=== PATIENT | male | born 1940 | race Caucasian/White ===

== ENCOUNTER 2022-09-26 08:42 | Inpatient (IN) | payer MEDICARE ==
[~2022-09-26] VITALS: Ht 167.6 cm; Wt 86.2 kg
--- NOTE | 2022-09-26 08:58 | NUR ---
[facility] [place], sent by PMD for noted generalized weakness. Placed in gown.
--- NOTE | 2022-09-26 09:01 | NUR ---
IV LINE LEFT AC 20 G ,
--- NOTE | 2022-09-26 09:01 | NUR ---
BLOOD SAMPLE OBTAINED SENT TO LAB
[2022-09-26 09:37] LABS: BASOPHILS # (AUTO) 0.1 K/uL (0.0-0.2); BASOPHILS % (AUTO) 0.9 % (0.0-2.0); EOSINOPHILS % (AUTO) 7.8 % (0.0-6.0); HEMATOCRIT 32 % (39-51); HEMOGLOBIN 10.3 g/dL (13.5-17.5); LYMPHOCYTES # (AUTO) 2.3 K/uL (0.8-4.8); LYMPHOCYTES % (AUTO) 32.5 % (20.0-44.0); MEAN CORPUSCULAR HGB CONC 32 g/dl (31.0-36.0); MEAN CORPUSCULAR VOLUME 92 fL (80-96); MONOCYTES # (AUTO) 0.7 K/uL (0.1-1.30); MONOCYTES % (AUTO) 10.4 % (2.0-12.0); NEUTROPHILS # (AUTO) 3.5 K/uL (1.8-8.9); NEUTROPHILS % (AUTO) 48.4 % (43.0-81.0); PLATELET COUNT (AUTO) 98 K/uL (150-450); RED BLOOD CELL COUNT(AUTO) 3.46 MIL/uL (4.5-6.0); WHITE BLOOD COUNT (AUTO) 7.2 K/uL (4.3-11.0)
[2022-09-26] MEDS ORDERED: MAG HYDROX/AL HYDROX/SIMETH 30 ML UDC PO PRN ×2 (10:00→15:00)
[2022-09-26] MEDS ORDERED: MAGNESIUM HYDROXIDE 30 ML UDC PO PRN ×2 (10:00→15:00)
[2022-09-26] MEDS ORDERED: IV NS 0.9% 1,000 ML IV PRN (10:00)
[2022-09-26] MEDS ORDERED: ACETAMINOPHEN 325 MG TABLET PO PRN ×2 (10:00→15:00)
[2022-09-26] MEDS ORDERED: ONDANSETRON HCL/PF 4 MG/2 ML VIAL IVP PRN ×2 (10:00→15:00)
[2022-09-26] MEDS ORDERED: Z GUARD REMEDY 4 OZ OINT TP PRN ×2 (10:00→15:00)
[2022-09-26 10:01] LABS: ALANINE AMINOTRANSFERASE 27 U/L (12-78); ALKALINE PHOSPHATASE 68 U/L (46-116); ASPARTATE AMINOTRANSFERASE 19 U/L (15-37); BILIRUBIN,DIRECT 0.1 mg/dL (0.0-0.2); BILIRUBIN,TOTAL 0.2 mg/dL (0.2-1.0); CALCIUM, SERUM 8.3 mg/dL (8.5-10.1); CARBON DIOXIDE 24 mmol/L (21-32); CHLORIDE 114 mmol/L (98-107); CREATININE 1.7 mg/dL (0.6-1.3); GLUCOSE 106 mg/dL (74-106); POTASSIUM 4.1 mmol/L (3.5-5.1); SODIUM SERUM 146 mmol/L (136-145); TOTAL PROTEIN, SERUM 6.5 g/dL (6.4-8.2); UREA NITROGEN, BLOOD 38 mg/dL (7-18)
--- NOTE | 2022-09-26 11:56 | NUR ---
GOT BED 104 ADMITTING INFORMED.
[2022-09-26] MEDS ORDERED: FINA5TAB11 PO (11:59)
[2022-09-26] MEDS ORDERED: LOSA50TA39 PO (11:59)
[2022-09-26] MEDS ORDERED: FURO-145 PO (11:59)
[2022-09-26] MEDS ORDERED: BISA10SU11 RC (11:59)
[2022-09-26] MEDS ORDERED: ATOR40TA PO (11:59)
[2022-09-26] MEDS ORDERED: APIX2.5T PO (11:59)
[2022-09-26] MEDS ORDERED: DIVA500T54 PO (11:59)
[2022-09-26] MEDS ORDERED: MIRT45TA83 PO (11:59)
[2022-09-26] MEDS ORDERED: MAGN400O6 PO (11:59)
[2022-09-26] MEDS ORDERED: NA P133E RC (11:59)
[2022-09-26] MEDS ORDERED: ASPI-1169 PO (11:59)
[2022-09-26] MEDS ORDERED: METO25TA20 PO (11:59)
--- NOTE | 2022-09-26 12:10 | NUR ---
REPORT GIVEN TO JOYCE SUMMERS
--- NOTE | 2022-09-26 12:35 | NUR ---
ADMITTING MS RN NOTES: ADMITTED A 82 YO MALE PT FROM EMERGENCY ROOM.REPORT GIVEN BY KRISTOPHER RODRÍGUEZ. RECEIVED PT VIA GURNEY PATIENT IS AMBULATORY. NO SOB OR CARDIAC DISTRESS NOTED. ON ROOM AIR AND TOLERATING WELL. ON ROOM AIR AND TOLERATING WELL. LUNGS CLEAR. ABDOMEN SOFT AND BOWEL SOUND PRESENT. BODY ASSESSMENT DONE AND UPON ASSESSMENT SKIN IS INTACT.IV ACCESS ON LAC GAUGE 20 PATENT, INTACT AND INFUSING NS 1L @ 75ML/HR. BELONGINGS OF THE PT IS CLOTHES THAT HE'S WEARING, BOXER SHORTS, JOGGING PANTS AND SHOES. SAFETY MEASURES INITIATED: BED LOCKED AND IN LOWEST POSITION, SIDERAILS UP X 2 CALL LIGHT IN EAY REACH AND BED SIDE TABLE. ORIENTED PT TO THE UNIT AND STAFFS. WILL MONITOR PT ACCORDINGLY.
--- NOTE | 2022-09-26 12:36 | NUR ---
RN NOTES: PATIENT NOTED WITH BLE AND BILATERAL FEET +2 EDEMA. NOTED WITH SKIN DISCOLORATION ON LEFT HAND UNLESS OTHERWISE SKIN IS INTACT.
--- NOTE | 2022-09-26 12:40 | NUR ---
RN NOTES: URINE COLLECTED SPOKE TO GLEN FOR SPECIMEN BUNDLE COLLECTOR.
[2022-09-26 13:13] LABS: BILIRUBIN,URINE NEGATIVE (NEGATIVE); COLOR,URINE YELLOW (YELLOW); LEUKOCYTE ESTERASE ,URINE NEGATIVE (NEGATIVE); NITRITE, URINE NEGATIVE (NEGATIVE); PROTEIN,URINE NEGATIVE (NEGATIVE); UGLUCOSE NEGATIVE (NEGATIVE); UROBILINOGEN,URINE 0.2 EU/dL (0.2)
[2022-09-26] MEDS ORDERED: NA PHOS,M-B/NA PHOS,DI-BA 1 EA ENEMA RC PRN (15:00)
[2022-09-26] MEDS: MIRTAZAPINE 45 MG TABLET PO SCH (17:20)
--- NOTE | 2022-09-26 18:44 | NUR ---
ELECTRONICS WORKER CLOSING NOTES: PATIENT IN BED AWAKE,ALERT AND ORIENTED X 4 AND ABLE TO MAKE NEEDS KNOWN. NO SOB OR CARDIAC DISTRESS NOTED, PT STILL COMPLAIN BODY WEAKNESS BUT IMPROVING. DENIES PAIN AT THIS TIME. IV ACCESS ON LAC GAUGE 20 PATENT, INTACT AND INFUSING NS 1L @75ML/HR. SAFETY MEASURES MAINTAINED: BED LOCKED AND IN LOWEST POSITION, SIDE RAILS UP X 2. CALL LIGHT AND BED SIDE TABLE IN EASY REACH. WILL ENDORSE TO PLANNING ASSISTANT NURSE FOR CONTINUITY OF CARE.
--- NOTE | 2022-09-26 19:05 | NUR ---
SENIOR TELECOMMUNICATIONS CONSULTANT opening note Received pt resting in bed, awake, A&Ox4, able to make needs known, breathing even and unlabored, on RA, LAC 20G flushing well, NS 75cc/hr infusing well, pt independent with bed mobility, call light with in reach, bed at lowest position, will continue to monitor Addendum: 09/27/22 at 0620 by FRANCI MILLER LVN opening note time is 2076
--- NOTE | 2022-09-26 19:30 | NUR ---
MS RN OPENING NOTE RECEIVED PATIENT FROM AM NURSE; PATIENT AWAKE IN BED, A/O X 4, ABLE TO MAKE NEEDS KNOWN; STABLE ON ROOM AIR, BREATHING EVENLY AND NO S/S OF DISTRESS NOTED; WITH IV ACCESS AT LAC G#20 INFUSING WITH NORMAL SALINE AT 75 ML/HR; SAFETY MEASURES IMPLEMENTED, BED LOCKED IN LOW POSITION, SIDE RAILS UP X 2, CALL LIGHT AND TABLE WITHIN REACH; ENCOURAGED VERBALIZATION OF NEEDS; WILL CONTINUE TO MONITOR THROUGHOUT SHIFT
[2022-09-26 20:00] VITALS: BP 135/69
[2022-09-26] MEDS: APIXABAN 2.5 MG TABLET PO SCH (20:34)
--- NOTE | 2022-09-26 23:40 | NUR ---
MS FOREIGN SERVICE TEACHER OF CARE PATIENT SLEEPING IN BED, STABLE ON ROOM AIR AND NO S/S OF DISTRESS NOTED. NO COMPLAINTS OF PAIN AND DISCOMFORT AT THIS TIME. ENDORSED TO ANITA FOR ROSSY.
[2022-09-27 04:00] VITALS: BP 141/63
[2022-09-27 06:20] LABS: CALCIUM, SERUM 8.2 mg/dL (8.5-10.1); CREATININE 1.3 mg/dL (0.6-1.3); MAGNESIUM 2.6 mg/dL (1.8-2.4); PHOSPHORUS 3.3 mg/dL (2.5-4.9)
--- NOTE | 2022-09-27 06:20 | NUR ---
CALTRANS EQUIPMENT OPERATOR closing note Pt resting in bed, asleep, easy to arouse, A&Ox4, verbal, breathing even and unlabored, on RA, denied any pain this shift, LFA 20G flushing well, all due meds given per md orders, tolerated well, all basic needs met and anticipated, will cont to monitor
--- NOTE | 2022-09-27 07:50 | NUR ---
MS RN OPENING NOTE FABIO DAY SHIFT) RECEIVED PATIENT FROM NIGHT NURSE; PATIENT AWAKE IN BED, A/O X 4, ABLE TO MAKE NEEDS KNOWN; STABLE ON ROOM AIR, BREATHING EVENLY AND NO S/S OF DISTRESS NOTED; WITH IV ACCESS AT LAC G#20 INFUSING WITH NORMAL SALINE AT 75 ML/HR; SAFETY MEASURES IMPLEMENTED, BED LOCKED IN LOW POSITION, SIDE RAILS UP X 2, CALL LIGHT AND TABLE WITHIN REACH; ENCOURAGED VERBALIZATION OF NEEDS; WILL CONTINUE TO MONITOR AND CARE FOR PATIENT THROUGHOUT SHIFT PER MD'S POC.
[2022-09-27 07:52] LABS: BASOPHILS # (AUTO) 0.1 K/uL (0.0-0.2); BASOPHILS % (AUTO) 0.8 % (0.0-2.0); EOSINOPHILS % (AUTO) 7.2 % (0.0-6.0); HEMATOCRIT 34 % (39-51); HEMOGLOBIN 10.4 g/dL (13.5-17.5); LYMPHOCYTES # (AUTO) 2.2 K/uL (0.8-4.8); LYMPHOCYTES % (AUTO) 28.6 % (20.0-44.0); MEAN CORPUSCULAR HGB CONC 31 g/dl (31.0-36.0); MEAN CORPUSCULAR VOLUME 96 fL (80-96); MONOCYTES % (AUTO) 12.3 % (2.0-12.0); NEUTROPHILS % (AUTO) 51.1 % (43.0-81.0); RED BLOOD CELL COUNT(AUTO) 3.51 MIL/uL (4.5-6.0); WHITE BLOOD COUNT (AUTO) 7.8 K/uL (4.3-11.0)
[2022-09-27 09:11] LABS: PLATELET COUNT (AUTO) 71 K/uL (150-450)
[2022-09-27 09:18] LABS: EOSINOPHILS % (MANUAL) 5 % (0-4); LYMPHOCYTES % (MANUAL) 27 % (16-48); MONOCYTES % (MANUAL) 13 % (0-11.0); NEUTROPHILS % (MANUAL) 55 (42-76)
[2022-09-27] MEDS: DIVALPROEX SODIUM 500 MG TABLET.DR PO SCH (09:33)
[2022-09-27] MEDS: ASPIRIN 81 MG TAB.CHEW PO SCH (09:33)
[2022-09-27] MEDS: FINASTERIDE (5 MG) 5 MG TABLET PO SCH (09:33)
[2022-09-27] MEDS: METOPROLOL TARTRATE 25 MG TABLET PO SCH (09:34)
[2022-09-27] MEDS: APIXABAN 2.5 MG TABLET PO SCH ×2 (09:36→22:18)
[2022-09-27 12:00] VITALS: BP 122/74
[2022-09-27 16:00] VITALS: BP 114/65
[2022-09-27] MEDS: IV NS 0.9% 1,000 ML IV PRN (16:29)
[2022-09-27] MEDS: MIRTAZAPINE 45 MG TABLET PO SCH (18:02)
--- NOTE | 2022-09-27 18:51 | NUR ---
PHOTOENGRAVING SKETCH MAKER CLOSING NOTE (FABIO DAY SHIFT) PATIENT IN BED AWAKE,ALERT AND ORIENTED X 4 AND ABLE TO MAKE NEEDS KNOWN. NO SOB OR CARDIAC DISTRESS NOTED. DENIES PAIN AT THIS TIME. IV ACCESS ON LAC GAUGE 20 PATENT, INTACT AND INFUSING NS @75ML/HR. SAFETY MEASURES MAINTAINED: BED LOCKED AND IN LOWEST POSITION, SIDE RAILS UP X 2. CALL LIGHT AND BED SIDE TABLE IN EASY REACH. WILL ENDORSE TO SIGN PAINTER NURSE FOR CONTINUITY OF CARE.
--- NOTE | 2022-09-27 19:00 | NUR ---
UROLOGY TEACHER opening note Received pt resting in bed, awake, A&Ox4, able to make needs known, breathing even and unlabored, on RA, LAC 20G flushing well, NS 75cc/hr infusing well, pt independent with bed mobility, call light with in reach, bed at lowest position, will continue to monitor
[2022-09-27 20:00] VITALS: BP 124/66
[2022-09-28 04:00] VITALS: BP 137/83
[2022-09-28] MEDS: IV NS 0.9% 1,000 ML IV PRN (06:18)
--- NOTE | 2022-09-28 06:35 | NUR ---
FIELD SERVICER closing note Pt resting in bed, asleep, easy to arouse, A&Ox4, verbal, breathing even and unlabored, on RA, denied any pain this shift, LFA 20G flushing well, all due meds given per md orders, tolerated well, all basic needs met and anticipated, all safety precautions in place, will cont to monitor
--- NOTE | 2022-09-28 07:10 | NUR ---
SENIOR SALES MANAGER OPENING NOTES Received pt awake in bed AOX4. No complaints of pain or discomfort at this time. Pt is on RA and tolerating it well. IV access on LAC 20G running IVF NS @ 75cc/hr. HOB elevated to opts comfort. Siderails up at al times x4. Call light within reach. Will continue to monitor.
[2022-09-28 08:00] VITALS: BP 144/81
[2022-09-28] MEDS: DIVALPROEX SODIUM 500 MG TABLET.DR PO SCH (08:48)
[2022-09-28] MEDS: ASPIRIN 81 MG TAB.CHEW PO SCH (08:49)
[2022-09-28] MEDS: METOPROLOL TARTRATE 25 MG TABLET PO SCH (08:49)
[2022-09-28] MEDS: FINASTERIDE (5 MG) 5 MG TABLET PO SCH (08:49)
[2022-09-28] MEDS: APIXABAN 2.5 MG TABLET PO SCH ×2 (08:49→21:08)
[2022-09-28 16:00] VITALS: BP 115/62
[2022-09-28] MEDS: MIRTAZAPINE 45 MG TABLET PO SCH (17:00)
--- NOTE | 2022-09-28 18:42 | NUR ---
JUNIOR MARKETING ASSOCIATE CLOSING NOTES All due meds and tx given as ordered. Pt tolerated everything well. All needs attended to. Call light within reach. Will endorse to oncoming nurse.
--- NOTE | 2022-09-28 19:30 | NUR ---
noc rn opening received patient in bed a/ox4, no s/s of apparent distress in room air. denies pain nor discomfort. IV access on LAC #20g saline lock. safety in place-- bed in lowest, locked position, call light within reach, side rails up X2. will continue to monitor patient.
[2022-09-28 20:00] VITALS: BP 134/62
[2022-09-29 05:00] VITALS: BP 126/70
--- NOTE | 2022-09-29 06:12 | NUR ---
noc rn closing note 104 Patient in bed with eyes closed, easy to arouse. no s/s of apparent distress in room air. denies pain nor discomfort at this time. left ac #20g on saline lock. safety kept in place throughout shift. all needs attended. all scheduled medication administered. patient for d/c this am. will endorse to morning shift rn for continuity of care.
--- NOTE | 2022-09-29 07:05 | NUR ---
MS RN OPENING NOTE: RECEIVED PT IN BED. SLEEPING. EASILY AROUSABLE TO VERBAL AND TACTILE STIMULI. NO RESP DISTRESS NOTED. CALL LIGHT WITHIN REACH. BED IN LOW AND LOCK POSITION.
[2022-09-29] MEDS: DIVALPROEX SODIUM 500 MG TABLET.DR PO SCH (08:29)
[2022-09-29] MEDS: FINASTERIDE (5 MG) 5 MG TABLET PO SCH (08:29)
[2022-09-29] MEDS: ASPIRIN 81 MG TAB.CHEW PO SCH (08:29)
[2022-09-29 08:30] VITALS: BP 118/66
[2022-09-29] MEDS: APIXABAN 2.5 MG TABLET PO SCH (08:30)
[2022-09-29] MEDS: METOPROLOL TARTRATE 25 MG TABLET PO SCH (08:30)
--- NOTE | 2022-09-29 11:22 | NUR ---
MS RN NOTE: DR. WHALEY WITH ORDER TO D/C BACK TO [facility] [phone]. CALLED AND REPORT GIVEN TO SARTHAK SUMMERS AT THE FACILITY.
--- NOTE | 2022-09-29 13:15 | NUR ---
DISCHARGE NOTE: RECEIVED ORDER FOR D/C BACK [facility]. PT IS AAOX4. ABLE TO MAKE NEEDS KNOWN. IN STABLE CONDITION. ON RA, NO SOB NOTED. D/C INSTRUCTION GIVEN TO PT. VERBALIZE UNDERSTANDING. ALL BELONGINGS ACCOUNTED FOR AND SIGNED. IV ACCESS REMOVED.CATHETER INTACT. PRESSURE DRESSING APPLIED. ID BAND REMOVED. EXIT CARE FOLDER GIVEN. PT PICKED BY [facility]. PT LEFT IN STABLE CONDITION.
== END 2022-09-29 13:15 | DRG 682 ==
LOC: ER 09:18 → MEDSG1 12:27
PROVIDERS: ADMIT Internal Medicine
DX: N17.0 Acute kidney failure with tubular necrosis (principal); E43 Unspecified severe protein-calorie malnutrition; G93.41 Metabolic encephalopathy; E87.0 Hyperosmolality and hypernatremia; E87.20 Acidosis, unspecified; E86.0 Dehydration; E86.1 Hypovolemia; N18.1 Chronic kidney disease, stage 1; I12.9 Hypertensive chronic kidney disease with stage 1 through stage 4 chronic kidney disease, or unspecified chronic kidney disease; D63.8 Anemia in other chronic diseases classified elsewhere; I48.91 Unspecified atrial fibrillation; N40.0 Benign prostatic hyperplasia without lower urinary tract symptoms; E88.09 Other disorders of plasma-protein metabolism, not elsewhere classified; Z68.30 Body mass index [BMI] 30.0-30.9, adult; R53.1 Weakness; R29.6 Repeated falls
CPT/HCPCS: 36415; 71045-TC; 80048-TC; 80076-TC; 83605-TC; 83735-TC; 84100-TC; 84484-TC; 85025-TC; 85730-TC; 87040-TC; 87086-TC; 97116-TC; 97530-TC; G0378; J7030; J7060

== ENCOUNTER 2024-07-14 13:56 | Inpatient (IN) | payer MEDICARE, BC, OTHER ==
[~2024-07-14] VITALS: Ht 167.6 cm; Wt 88.9 kg
[~2024-07-14 13:56] MED LIST: APIX2.5T PO; ASPI-1169 PO; ATOR40TA PO; BISA10SU11 RC; DIVA500T54 PO; FINA5TAB11 PO; FURO-145 PO; LOSA50TA39 PO; MAGN400O6 PO; METO25TA20 PO; MIRT45TA83 PO; NA P133E RC
[2024-07-14 14:45] LABS: INR 1.08 (0.91-1.10); PARTIAL THROMBOPLASTIN TIME 31.3 SEC (24.3-34.3); PROTHROMBIN TIME 11.4 SECS (9.2-11.1)
[2024-07-14 14:46] LABS: CALCIUM, SERUM 8.6 mg/dL (8.5-10.1); CARBON DIOXIDE 19 mmol/L (21-32); CHLORIDE 102 mmol/L (98-107); CREATININE 1.8 mg/dL (0.6-1.3); GLUCOSE 126 mg/dL (74-106); POTASSIUM 5.6 mmol/L (3.5-5.1); SODIUM SERUM 134 mmol/L (136-145); UREA NITROGEN, BLOOD 34 mg/dL (7-18)
[2024-07-14 14:58] LABS: MAGNESIUM 2.3 mg/dL (1.8-2.4)
[2024-07-14 14:59] LABS: CREATINE KINASE, TOTAL 72 U/L (39-308)
[2024-07-14 15:00] LABS: ALANINE AMINOTRANSFERASE 36 U/L (12-78); ALBUMIN 3.3 g/dL (3.4-5.0); ALKALINE PHOSPHATASE 106 U/L (46-116); ASPARTATE AMINOTRANSFERASE 30 U/L (15-37); BILIRUBIN,DIRECT 0.2 mg/dL (0.0-0.2); BILIRUBIN,TOTAL 0.8 mg/dL (0.2-1.0); TOTAL PROTEIN, SERUM 6.8 g/dL (6.4-8.2)
[2024-07-14 15:05] LABS: ALCOHOL, BLOOD < 10 mg/dL (0-10)
[2024-07-14 15:07] LABS: BASOPHILS # (AUTO) 0.1 K/uL (0.0-0.2); BASOPHILS % (AUTO) 0.6 % (0.0-2.0); EOSINOPHILS # (AUTO) 0.1 K/uL (0.0-0.7); EOSINOPHILS % (AUTO) 1.6 % (0.0-6.0); HEMATOCRIT 34 % (39-51); HEMOGLOBIN 11.6 g/dL (13.5-17.5); LYMPHOCYTES # (AUTO) 1.2 K/uL (0.8-4.8); MEAN CORPUSCULAR HEMOGLOBIN 29 PG (26.0-33.0); MEAN CORPUSCULAR HGB CONC 34 g/dl (31.0-36.0); MEAN CORPUSCULAR VOLUME 85 fL (80-96); MONOCYTES # (AUTO) 1.3 K/uL (0.1-1.30); MONOCYTES % (AUTO) 14.7 % (2.0-12.0); NEUTROPHILS # (AUTO) 6.1 K/uL (1.8-8.9); NEUTROPHILS % (AUTO) 69.1 % (43.0-81.0); RED BLOOD CELL COUNT(AUTO) 4.05 MIL/uL (4.5-6.0); RED CELL DISTRIBUTION WIDTH 16.1 % (11.5-15.0); WHITE BLOOD COUNT (AUTO) 8.8 K/uL (4.3-11.0)
[2024-07-14 15:17] LABS: APPEARANCE,URINE CLEAR (CLEAR); BILIRUBIN,URINE NEGATIVE (NEGATIVE); BLOOD, URINE NEGATIVE Ery/uL (NEGATIVE); COLOR,URINE YELLOW (YELLOW); KETONES,URINE NEGATIVE (NEGATIVE); LEUKOCYTE ESTERASE ,URINE NEGATIVE (NEGATIVE); NITRITE, URINE NEGATIVE (NEGATIVE); PROTEIN,URINE TRACE mg/dl (NEGATIVE); UGLUCOSE NEGATIVE (NEGATIVE)
[2024-07-14] MEDS ORDERED: FUROSEMIDE 40 MG/4 ML VIAL ONE (15:19)
[2024-07-14] MEDS: FUROSEMIDE 40 MG/4 ML VIAL IV ONE (15:25)
[2024-07-14] MEDS ORDERED: MIRT7.5T10 PO (16:18)
[2024-07-14] MEDS ORDERED: ACET-2030 PO ×2 (16:18)
[2024-07-14] MEDS ORDERED: LIDO1ADH82 TP (16:18)
[2024-07-14] MEDS ORDERED: DIVA250T47 PO (16:18)
[2024-07-14] MEDS ORDERED: BACL10TA PO (16:18)
[2024-07-14 16:37] LABS: ADD URINE CULTURE NO; BACTERIA,URINE None seen /HPF (None Seen); MUCUS,URINE Few /LPF (None Seen); RBC,URINE 0-2 /HPF (0-2); SQUAMOUS EPITHELIAL CELL,UR 0-2 /HPF (None Seen); WBC,URINE 0-2 /HPF (0-3)
[2024-07-14 18:00] VITALS: BP 118/88; TEMP 97.7; O2SAT 95
[2024-07-14 18:22] LABS: PLATELET COUNT (AUTO) 186 K/uL (150-450)
[2024-07-14] MEDS ORDERED: MAG HYDROX/AL HYDROX/SIMETH 30 ML UDC PO PRN (18:30)
[2024-07-14] MEDS ORDERED: BISACODYL SUPP (10 MG) 10 MG/SUPP.RECT SUPP.RECT RC PRN (18:30)
[2024-07-14] MEDS ORDERED: BACLOFEN (10 MG) 10 MG TABLET PO PRN (18:30)
[2024-07-14] MEDS ORDERED: ONDANSETRON HCL/PF 4 MG/2 ML VIAL IVP PRN (18:30)
[2024-07-14] MEDS ORDERED: MAGNESIUM HYDROXIDE 30 ML UDC PO PRN (18:30)
[2024-07-14] MEDS: LIDOCAINE 5% (PATCH) 1 EA PATCH TP SCH (18:30)
[2024-07-14] MEDS ORDERED: ACETAMINOPHEN 325 MG TABLET PO PRN (18:30)
[2024-07-14 20:00] VITALS: BP 165/96; TEMP 97.9; O2SAT 95
[2024-07-14] MEDS: MIRTAZAPINE 15 MG TABLET PO SCH (21:10)
[2024-07-14] MEDS: APIXABAN 2.5 MG TABLET PO SCH (21:11)
[2024-07-14] MEDS: DIVALPROEX SODIUM 250 MG TABLET.DR PO SCH (21:11)
[2024-07-14] MEDS: ATORVASTATIN 40 MG TABLET PO SCH (21:11)
[2024-07-15] VITALS (7 sets, daily range): BP systolic 118–138; BP diastolic 51–76; TEMP 96.4–98.4; O2SAT 94–100
[2024-07-15 07:35] LABS: CALCIUM, SERUM 8.7 mg/dL (8.5-10.1); CREATININE 1.5 mg/dL (0.6-1.3); MAGNESIUM 2.4 mg/dL (1.8-2.4); PHOSPHORUS 5.2 mg/dL (2.5-4.9); POTASSIUM 5.1 mmol/L (3.5-5.1)
[2024-07-15 08:03] LABS: BASOPHILS # (AUTO) 0.1 K/uL (0.0-0.2); BASOPHILS % (AUTO) 0.6 % (0.0-2.0); EOSINOPHILS # (AUTO) 0.1 K/uL (0.0-0.7); EOSINOPHILS % (AUTO) 1.1 % (0.0-6.0); HEMATOCRIT 36 % (39-51); LYMPHOCYTES % (AUTO) 10.5 % (20.0-44.0); MEAN CORPUSCULAR HEMOGLOBIN 28 PG (26.0-33.0); MEAN CORPUSCULAR HGB CONC 33 g/dl (31.0-36.0); MEAN CORPUSCULAR VOLUME 85 fL (80-96); MONOCYTES # (AUTO) 1.2 K/uL (0.1-1.30); MONOCYTES % (AUTO) 12.7 % (2.0-12.0); NEUTROPHILS # (AUTO) 6.9 K/uL (1.8-8.9); NEUTROPHILS % (AUTO) 75.1 % (43.0-81.0); RED BLOOD CELL COUNT(AUTO) 4.27 MIL/uL (4.5-6.0); RED CELL DISTRIBUTION WIDTH 16.3 % (11.5-15.0); WHITE BLOOD COUNT (AUTO) 9.1 K/uL (4.3-11.0)
[2024-07-15] MEDS ORDERED: METOPROLOL TARTRATE 25 MG TABLET PO SCH (09:00)
[2024-07-15] MEDS ORDERED: FUROSEMIDE 40 MG/4 ML VIAL IV SCH (09:00)
[2024-07-15] MEDS: ASPIRIN 81 MG TAB.CHEW PO SCH (09:25)
[2024-07-15] MEDS: FINASTERIDE (5 MG) 5 MG TABLET PO SCH (09:25)
[2024-07-15] MEDS: LOSARTAN POTASSIUM 50 MG TABLET PO SCH (09:26)
[2024-07-15] MEDS: FUROSEMIDE 100 MG/10 ML VIAL IV SCH (09:56)
[2024-07-15 16:05] LABS: PLATELET COUNT (AUTO) 182 K/uL (150-450)
[2024-07-16] VITALS: BP 109/82; TEMP 97.9; O2SAT 97
[2024-07-16 04:00] VITALS: BP 123/69; TEMP 96.4; O2SAT 94
[2024-07-16 07:01] LABS: BASOPHILS % (AUTO) 0.6 % (0.0-2.0); EOSINOPHILS # (AUTO) 0.1 K/uL (0.0-0.7); EOSINOPHILS % (AUTO) 1.9 % (0.0-6.0); HEMATOCRIT 35 % (39-51); HEMOGLOBIN 11.7 g/dL (13.5-17.5); LYMPHOCYTES # (AUTO) 1.3 K/uL (0.8-4.8); MEAN CORPUSCULAR HEMOGLOBIN 28 PG (26.0-33.0); MEAN CORPUSCULAR HGB CONC 33 g/dl (31.0-36.0); MEAN CORPUSCULAR VOLUME 84 fL (80-96); MONOCYTES # (AUTO) 1.5 K/uL (0.1-1.30); MONOCYTES % (AUTO) 19.2 % (2.0-12.0); NEUTROPHILS # (AUTO) 4.7 K/uL (1.8-8.9); NEUTROPHILS % (AUTO) 61.3 % (43.0-81.0); RED CELL DISTRIBUTION WIDTH 16.4 % (11.5-15.0); WHITE BLOOD COUNT (AUTO) 7.7 K/uL (4.3-11.0)
[2024-07-16 07:02] LABS: ALBUMIN 3.1 g/dL (3.4-5.0); BILIRUBIN,TOTAL 0.9 mg/dL (0.2-1.0); CALCIUM, SERUM 8.9 mg/dL (8.5-10.1); CREATININE 1.9 mg/dL (0.6-1.3); MAGNESIUM 2.4 mg/dL (1.8-2.4); POTASSIUM 4.9 mmol/L (3.5-5.1); TOTAL PROTEIN, SERUM 6.5 g/dL (6.4-8.2)
[2024-07-16 08:00] VITALS: BP 127/71; TEMP 97.5; O2SAT 98
[2024-07-16] MEDS: FUROSEMIDE 100 MG/10 ML VIAL IV SCH (10:56)
[2024-07-16] MEDS: METOLAZONE 2.5 MG TABLET PO SCH (10:56)
[2024-07-16 11:56] LABS: PLATELET COUNT (AUTO) 182 K/uL (150-450)
[2024-07-16 12:00] VITALS: BP 112/60; TEMP 97.5; O2SAT 99
[2024-07-16 16:00] VITALS: BP 119/69; TEMP 97.3; O2SAT 99
[2024-07-16 20:00] VITALS: BP 153/138; TEMP 98.1; O2SAT 93
[2024-07-17] VITALS: BP 110/51; TEMP 98.6; O2SAT 96
[2024-07-17 04:00] VITALS: BP 97/56; TEMP 98.4; O2SAT 99
[2024-07-17 07:04] LABS: BASOPHILS % (AUTO) 0.5 % (0.0-2.0); EOSINOPHILS # (AUTO) 0.2 K/uL (0.0-0.7); EOSINOPHILS % (AUTO) 1.8 % (0.0-6.0); HEMATOCRIT 37 % (39-51); HEMOGLOBIN 12.4 g/dL (13.5-17.5); LYMPHOCYTES # (AUTO) 1.4 K/uL (0.8-4.8); LYMPHOCYTES % (AUTO) 15.4 % (20.0-44.0); MEAN CORPUSCULAR HEMOGLOBIN 28 PG (26.0-33.0); MEAN CORPUSCULAR HGB CONC 34 g/dl (31.0-36.0); MEAN CORPUSCULAR VOLUME 84 fL (80-96); MONOCYTES # (AUTO) 1.6 K/uL (0.1-1.30); MONOCYTES % (AUTO) 17.5 % (2.0-12.0); NEUTROPHILS % (AUTO) 64.8 % (43.0-81.0); RED BLOOD CELL COUNT(AUTO) 4.36 MIL/uL (4.5-6.0); RED CELL DISTRIBUTION WIDTH 16.6 % (11.5-15.0); WHITE BLOOD COUNT (AUTO) 9.3 K/uL (4.3-11.0)
[2024-07-17 07:16] LABS: ALBUMIN 3.2 g/dL (3.4-5.0); BILIRUBIN,TOTAL 0.8 mg/dL (0.2-1.0); CALCIUM, SERUM 9.1 mg/dL (8.5-10.1); CREATININE 2.2 mg/dL (0.6-1.3); MAGNESIUM 2.3 mg/dL (1.8-2.4); PHOSPHORUS 6.3 mg/dL (2.5-4.9); POTASSIUM 4.3 mmol/L (3.5-5.1); TOTAL PROTEIN, SERUM 6.8 g/dL (6.4-8.2)
[2024-07-17 08:00] VITALS: BP_SYST 133; BP_SYST 97; BP_DIAS 56; BP_DIAS 72; TEMP 97.7; TEMP 98.4; O2SAT 98; O2SAT 99
[2024-07-17 08:47] LABS: PLATELET COUNT (AUTO) 242 K/uL (150-450)
[2024-07-17 12:00] VITALS: BP 105/54; TEMP 98.1; O2SAT 98
[2024-07-17 16:00] VITALS: BP 101/44; TEMP 98.1; O2SAT 98
[2024-07-17 20:00] VITALS: BP 97/51; TEMP 98.6; O2SAT 98
[2024-07-18] VITALS: BP 98/46; TEMP 98.1; O2SAT 94
[2024-07-18 04:00] VITALS: BP 95/52; TEMP 98.2; O2SAT 94
[2024-07-18 07:13] LABS: BASOPHILS # (AUTO) 0.1 K/uL (0.0-0.2); BASOPHILS % (AUTO) 0.8 % (0.0-2.0); EOSINOPHILS # (AUTO) 0.2 K/uL (0.0-0.7); EOSINOPHILS % (AUTO) 2.1 % (0.0-6.0); HEMATOCRIT 38 % (39-51); HEMOGLOBIN 12.5 g/dL (13.5-17.5); LYMPHOCYTES # (AUTO) 2.1 K/uL (0.8-4.8); LYMPHOCYTES % (AUTO) 19.2 % (20.0-44.0); MEAN CORPUSCULAR HEMOGLOBIN 28 PG (26.0-33.0); MEAN CORPUSCULAR HGB CONC 33 g/dl (31.0-36.0); MEAN CORPUSCULAR VOLUME 84 fL (80-96); MONOCYTES # (AUTO) 1.7 K/uL (0.1-1.30); MONOCYTES % (AUTO) 15.6 % (2.0-12.0); NEUTROPHILS # (AUTO) 6.8 K/uL (1.8-8.9); NEUTROPHILS % (AUTO) 62.3 % (43.0-81.0); PLATELET COUNT (AUTO) 58 K/uL (150-450); RED BLOOD CELL COUNT(AUTO) 4.54 MIL/uL (4.5-6.0); RED CELL DISTRIBUTION WIDTH 15.9 % (11.5-15.0)
[2024-07-18 07:15] LABS: CALCIUM, SERUM 8.5 mg/dL (8.5-10.1); CREATININE 2.3 mg/dL (0.6-1.3); MAGNESIUM 2.6 mg/dL (1.8-2.4); PHOSPHORUS 5.7 mg/dL (2.5-4.9); POTASSIUM 4.8 mmol/L (3.5-5.1)
[2024-07-18 08:00] VITALS: BP 131/63; TEMP 97.9; O2SAT 96
[2024-07-18 09:24] LABS: ANISOCYTOSIS 1+; EOSINOPHILS % (MANUAL) 2 % (0-4); LYMPHOCYTES % (MANUAL) 17 % (16-48); MONOCYTES % (MANUAL) 9 % (0-11.0); NEUTROPHILS % (MANUAL) 72 (42-76); PLATELET ESTIMATE DECREASED
[2024-07-18 15:47] VITALS: BP 102/61; TEMP 98; O2SAT 96
[2024-07-18 16:16] VITALS: BP 98/61; TEMP 98; O2SAT 98
[2024-07-18 20:18] VITALS: BP 119/51; TEMP 98.9; O2SAT 93
[2024-07-19 04:05] VITALS: BP 129/54; TEMP 98.1; O2SAT 98
[2024-07-19 07:33] LABS: BASOPHILS # (AUTO) 0.1 K/uL (0.0-0.2); BASOPHILS % (AUTO) 0.7 % (0.0-2.0); EOSINOPHILS # (AUTO) 0.2 K/uL (0.0-0.7); EOSINOPHILS % (AUTO) 2.3 % (0.0-6.0); HEMATOCRIT 39 % (39-51); LYMPHOCYTES % (AUTO) 22.3 % (20.0-44.0); MEAN CORPUSCULAR HEMOGLOBIN 28 PG (26.0-33.0); MEAN CORPUSCULAR HGB CONC 33 g/dl (31.0-36.0); MEAN CORPUSCULAR VOLUME 84 fL (80-96); MONOCYTES # (AUTO) 1.2 K/uL (0.1-1.30); MONOCYTES % (AUTO) 14.2 % (2.0-12.0); NEUTROPHILS # (AUTO) 5.3 K/uL (1.8-8.9); NEUTROPHILS % (AUTO) 60.5 % (43.0-81.0); RED BLOOD CELL COUNT(AUTO) 4.69 MIL/uL (4.5-6.0); WHITE BLOOD COUNT (AUTO) 8.8 K/uL (4.3-11.0)
[2024-07-19 07:52] LABS: CALCIUM, SERUM 8.7 mg/dL (8.5-10.1); CREATININE 2.2 mg/dL (0.6-1.3); POTASSIUM 4.3 mmol/L (3.5-5.1)
[2024-07-19 08:00] VITALS: BP 119/60; TEMP 98.3
[2024-07-19 10:14] LABS: PLATELET COUNT (AUTO) 216 K/uL (150-450)
[2024-07-19 17:43] VITALS: BP 118/74; TEMP 98.5; O2SAT 99
[2024-07-19 20:00] VITALS: BP 133/71; TEMP 97.5; O2SAT 100
[2024-07-20] VITALS: BP 133/71; TEMP 97.5; O2SAT 100
[2024-07-20 04:00] VITALS: BP 128/70; TEMP 98; O2SAT 100
[2024-07-20 07:30] LABS: CALCIUM, SERUM 9.2 mg/dL (8.5-10.1); CREATININE 1.9 mg/dL (0.6-1.3); POTASSIUM 4.2 mmol/L (3.5-5.1)
[2024-07-20 08:00] VITALS: BP 127/71; TEMP 97.5; O2SAT 100
[2024-07-20 08:43] LABS: CREATININE, URINE 75.8 MG/DL (30.0-125.0); URINE TOTAL PROTEIN 15.4 mg/dL (0-11.9)
[2024-07-20] MEDS ORDERED: EMPA10TA PO (09:55)
[2024-07-20] MEDS ORDERED: BACL10TA PO (09:55)
[2024-07-20] MEDS ORDERED: ACET325T53 PO (09:55)
[2024-07-20] MEDS ORDERED: DIVA250T4 PO (09:55)
[2024-07-20] MEDS ORDERED: APIX2.5T PO (09:55)
[2024-07-20] MEDS ORDERED: BISA10SU61 RC (09:55)
[2024-07-20] MEDS ORDERED: FINA5TAB3 PO (09:55)
[2024-07-20] MEDS ORDERED: FURO-145 PO (09:55)
[2024-07-20] MEDS ORDERED: ATOR40TA PO (09:55)
[2024-07-20] MEDS ORDERED: ASPI-1169 PO (09:55)
[2024-07-20] MEDS ORDERED: LIDO30AD10 TP (09:55)
[2024-07-20 12:00] VITALS: BP 127/71; TEMP 97.5; O2SAT 100
== END 2024-07-20 15:40 | DRG 291 ==
LOC: ER 14:03 → TELE1 16:56 → TELE-TD 19:01 → TELE1 07-15 09:07 → MEDSG1 07-18 10:52
PROVIDERS: ADMIT Nurse Practitioner Acute Care; ATTEND Nurse Practitioner Acute Care
DX: I13.0 Hypertensive heart and chronic kidney disease with heart failure and stage 1 through stage 4 chronic kidney disease, or unspecified chronic kidney disease (principal); I50.33 Acute on chronic diastolic (congestive) heart failure; J15.69 Pneumonia due to other Gram-negative bacteria; N17.0 Acute kidney failure with tubular necrosis; J96.01 Acute respiratory failure with hypoxia; D68.59 Other primary thrombophilia; E44.0 Moderate protein-calorie malnutrition; E87.20 Acidosis, unspecified; E87.1 Hypo-osmolality and hyponatremia; I48.20 Chronic atrial fibrillation, unspecified; N18.9 Chronic kidney disease, unspecified; I25.10 Atherosclerotic heart disease of native coronary artery without angina pectoris; E88.09 Other disorders of plasma-protein metabolism, not elsewhere classified; Z88.8 Allergy status to other drugs, medicaments and biological substances; Z79.82 Long term (current) use of aspirin; Z79.01 Long term (current) use of anticoagulants; Z79.899 Other long term (current) drug therapy; E78.5 Hyperlipidemia, unspecified; E66.01 Morbid (severe) obesity due to excess calories; Z68.32 Body mass index [BMI] 32.0-32.9, adult; D64.9 Anemia, unspecified; E87.5 Hyperkalemia; Z99.3 Dependence on wheelchair; E03.8 Other specified hypothyroidism; I27.20 Pulmonary hypertension, unspecified; M89.8X9 Other specified disorders of bone, unspecified site; N40.0 Benign prostatic hyperplasia without lower urinary tract symptoms
CPT/HCPCS: 36415; 71045-TC; 76770-TC; 80048-TC; 80053-TC; 80076-TC; 81001; 82550-TC; 82570-TC; 83605-TC; 83735-TC; 83880; 84100-TC; 84300-TC; 84443-TC; 84484-TC; 85025-TC; 85730-TC; 87081-TC; 93307-TC; 93970-TC; 97110-TC; 97116-TC; 97530-TC; G0378; G0480; J1940